=== PATIENT | male | born 1945 | race Caucasian/White ===

== ENCOUNTER → 2016-09-10 | Outpatient (REF) | payer MEDICARE, OTHER ==
[2016-09-14 00:06] LABS: ACETYLCHOLINE RCPTOR BINDING A 5.63 nmol/L (0.00-0.24); STRIATIONAL ANTIBODIES Negative (Neg:<1:40)
== END ==
LOC: M LABNEURO 11:34
PROVIDERS: ATTEND Psychiatry & Neurology Neurology
DX: H53.2 Diplopia (principal)

== ENCOUNTER → 2016-10-08 | Outpatient (CLI) | payer MEDICARE, BC, OTHER | LOC: M RAD 16:03 | PROVIDERS: ATTEND Psychiatry & Neurology Neurology | DX: G70.00 Myasthenia gravis without (acute) exacerbation (principal); D15.0 Benign neoplasm of thymus ==

== ENCOUNTER → 2016-10-09 | Outpatient (CLI) | payer MEDICARE, BC, OTHER ==
[~2016-10-09] MED LIST: ISOVUE-370 76% 100ML VIAL (Q9967) As Ordered ONE
--- NOTE | 2016-10-09 18:03 | REP ---
CT CHEST WITH CONTRAST: HISTORY: Thymus neoplasm. COMPARISON: None. CONTRAST: 100 mL [id number]. There is no mediastinal or hilar adenopathy. There are no pleural or pericardial effusions. The images upper abdomen is within normal limits. The images osseous structures are within normal limits for the patient's age. Evaluation of the lung anderson shows no abnormal nodules, masses or opacities. IMPRESSION: CT findings are within normal limits. Signed by Eduardo Armenta DO 10/10/2016 10:14 A
== END ==
LOC: M RAD 13:34
PROVIDERS: ATTEND Psychiatry & Neurology Neurology
DX: G70.00 Myasthenia gravis without (acute) exacerbation (principal); D15.0 Benign neoplasm of thymus
CPT/HCPCS: 71260; Q9967

== ENCOUNTER → 2017-04-28 | Outpatient (REF) | payer MEDICARE, OTHER ==
[2017-04-28 15:07] LABS: PROSTATIC SPECIFIC AG MONITOR 1.78 NG/ML (< 4.0)
[2017-04-28 15:14] LABS: TESTOSTERONE 563 NG/DL (241-827)
== END ==
LOC: M LAB REF 13:07
DX: R33.9 Retention of urine, unspecified (principal); N40.0 Benign prostatic hyperplasia without lower urinary tract symptoms
CPT/HCPCS: 84403

== ENCOUNTER → 2018-02-02 | Outpatient (REF) | payer MEDICARE, OTHER ==
[2018-02-02 20:09] LABS: BACTERIA, URINE AUTO NEGATIVE (NEGATIVE); MUCUS, URINE SMALL (NEGATIVE); RBC, URINE AUTO 3 /HPF (0-3); SQUAMOUS EPITHELIAL CELL UR AU 0 /HPF (0-6); WBC, URINE AUTO 0 /HPF (0-3)
== END ==
LOC: M LAB REF 16:33
DX: R31.9 Hematuria, unspecified (principal)
CPT/HCPCS: 81015

== ENCOUNTER 2019-05-10 10:52 | Day surgery (SDC) | payer MEDICARE, BC, OTHER ==
[~2019-05-10] VITALS: Ht 172.7 cm; Wt 81.6 kg
[~2019-05-10 10:52] MED LIST changes: +ALFU10TA3 PO; +CALC500C16 PO; +CIDA500T2 PO; -ISOVUE-370 76% 100ML VIAL (Q9967) As Ordered ONE; +MAGN400C PO; +MYCO250C PO; +NS 1,000 ML IV SCH; +OLME40TA PO; +PRAV20TA2 PO; +PYRI60TA2 PO; +VITAD1000T PO
[2019-05-10] MEDS ORDERED: LIDOCAINE 2% INJ 100 MG/5 ML SDV (FOR ANES.) As Ordered ONE (11:06)
[2019-05-10] MEDS ORDERED: propofoL 200 MG/20 ML VIAL As Ordered ONE (11:06)
--- NOTE | 2019-05-10 12:38 | ROOR ---
Patient Name: Eric Cr Procedure Date: 05/10/2019 12:14 PM Date of : 1945 Age: 73 Room: [facility] Gender: Male Note Status: Finalized Procedure: Total Colonoscopy to Cecum Indications: Screening for colorectal malignant neoplasm Providers: Zeus Feliz MD Referring MD: Moon PARMAR MD Requesting Provider: Medicines: Monitored Anesthesia Care Complications: No immediate complications. Procedure: Pre-Anesthesia Assessment: - The heart rate, respiratory rate, oxygen saturations, blood pressure, adequacy of pulmonary ventilation, and response to care were monitored throughout the procedure. The Colonoscope was introduced through the anus and advanced to the cecum, identified by appendiceal orifice and ileocecal valve. The colonoscopy was performed without difficulty. The patient tolerated the procedure well. The quality of the bowel preparation was excellent. Findings: The perianal and digital rectal examinations were normal. Non-bleeding internal hemorrhoids were found during retroflexion. The hemorrhoids were small and Grade I (internal hemorrhoids that do not prolapse). A few small-mouthed diverticula were found in the recto-sigmoid colon, sigmoid colon and descending colon. The exam was otherwise without abnormality on direct and retroflexion views. Impression: - Non-bleeding internal hemorrhoids. - Diverticulosis in the recto-sigmoid colon, in the sigmoid colon and in the descending colon. - The examination was otherwise normal on direct and retroflexion views. - No specimens collected. - The exam was otherwise normal to the cecum. Recommendation: - Patient has a contact number available for emergencies. The signs and symptoms of potential delayed complications were discussed with the patient. Return to normal activities tomorrow. Written discharge instructions were provided to the patient. - High fiber diet. - Discharge patient to home. - Continue present medications. - Repeat colonoscopy for symptoms only. - Return to referring physician. - The findings and recommendations were discussed with the patient's family. Zeus Feliz MD Zeus Feliz MD 05/10/2019 12:37:21 PM Electronically signed by Zeus Feliz MD Number of Addenda: 0 Note Initiated On: 05/10/2019 12:14 PM Estimated Blood Loss: Estimated blood loss: none.
[2019-05-10 12:55] VITALS: BP 126/67
== END 2019-05-10 13:02 | disposition home or self-care (01) ==
LOC: M OPP 10:52
PROVIDERS: ATTEND Internal Medicine Gastroenterology
DX: Z12.11 Encounter for screening for malignant neoplasm of colon (principal); K64.0 First degree hemorrhoids; K57.30 Diverticulosis of large intestine without perforation or abscess without bleeding; I10 Essential (primary) hypertension; E78.00 Pure hypercholesterolemia, unspecified; G70.00 Myasthenia gravis without (acute) exacerbation; Z87.891 Personal history of nicotine dependence; Z79.899 Other long term (current) drug therapy

== ENCOUNTER → 2019-07-11 | Outpatient (REF) | payer MEDICARE, BC, OTHER ==
[~2019-07-11] MED LIST changes: -NS 1,000 ML IV SCH
== END ==
LOC: M LAB REF 18:03
PROVIDERS: ATTEND Physician Assistant
DX: R19.7 Diarrhea, unspecified (principal)

== ENCOUNTER → 2020-05-26 | Outpatient (CLI) | payer MEDICARE, BC, OTHER ==
[~2020-05-26] MED LIST changes: +D31000TA2 PO; -VITAD1000T PO
--- NOTE | 2020-05-26 13:21 | REP ---
INDICATION: CALCANEAL FX VS ACHILLES TENDONITIS. COMPARISON: Plain films 10/18/2019. TECHNIQUE: Multiple sequences are obtained in the axial, coronal and sagittal planes. FINDINGS: The Achilles, anterior tibial, posterior tibial, flexor hallucis longus, flexor digitorum longus and peroneal tendons are all intact without significant tenosynovitis. The anterior and posterior talofibular, calcaneofibular and deltoid ligaments appear intact. Plantar tendon appears intact. There is no plantar fasciitis. Sinus tarsi appears unremarkable. No ganglion cyst is seen. There is normal amount of joint fluid. The cartilaginous surfaces are smooth. No osteochondral defect is seen at the tibiotalar joint. Mild curvilinear high signal on T2 weighted images in the mid and posterior calcaneus, is low in signal on T1, and has a in oblique orientation, this likely represents advanced healing of a nondisplaced occult fracture/bone bruise. IMPRESSION: Findings compatible with advanced healing of a nondisplaced occult fracture/bone bruise of the calcaneus. <Electronically signed by Justin Crowder > 05/26/20 [id number]
== END ==
LOC: M PLARAD 09:58
PROVIDERS: ATTEND Podiatrist
DX: M79.672 Pain in left foot (principal)

== ENCOUNTER → 2020-08-04 | Outpatient (REF) | payer MEDICARE, BC, OTHER | LOC: M LAB REF 19:53 | PROVIDERS: ATTEND Nurse Practitioner Family | DX: R11.2 Nausea with vomiting, unspecified (principal); Z79.899 Other long term (current) drug therapy ==

== ENCOUNTER → 2020-08-07 | Outpatient (CLI) | payer MEDICARE, BC, OTHER ==
[2020-08-07 20:01] LABS: BASO % 0.4 % (0.0-1.0); EOS % 0.4 % (0.0-3.0); HEMATOCRIT 48.5 % (42.0-52.0); HEMOGLOBIN 15.8 g/dl (13.5-17.5); LYMPH # 0.5 10^3/uL (1.5-5.0); LYMPH % 8.9 % (24.0-44.0); MEAN CORPUSCULAR HEMOGLOBIN 31.6 pg (27.0-33.0); MEAN CORPUSCULAR HGB CONC 32.6 g/dl (32.0-36.5); MONO # 0.4 10^3/uL (0.0-0.8); MONO % 7.5 % (2.0-8.0); NEUTROPHILS # 4.6 10^3/uL (1.5-8.5); NEUTROPHILS % 82.4 % (36.0-66.0); PLATELET COUNT, AUTOMATED 344 10^3/uL (150-450); WHITE BLOOD COUNT 5.6 10^3/uL (4.0-10.0)
[2020-08-07 20:08] LABS: ALBUMIN 3.4 GM/DL (3.2-5.2); CALCIUM LEVEL 8.6 MG/DL (8.8-10.2); CREATININE FOR GFR 1.41 MG/DL (0.70-1.30); GLOMERULAR FILTRATION RATE 52.2 (>42); TOTAL PROTEIN 6.3 GM/DL (6.4-8.2)
== END ==
LOC: M WUC 15:40
PROVIDERS: ATTEND Physician Assistant
DX: R19.7 Diarrhea, unspecified (principal)

== ENCOUNTER → 2020-08-07 | Outpatient (REF) | payer MEDICARE, BC, OTHER | LOC: M LAB REF 20:09 | PROVIDERS: ATTEND Physician Assistant | DX: R19.7 Diarrhea, unspecified (principal) ==

== ENCOUNTER → 2020-08-10 | Outpatient (CLI) | payer MEDICARE, BC, OTHER | LOC: M LAB 10:58 | PROVIDERS: ATTEND Internal Medicine | DX: R19.7 Diarrhea, unspecified (principal) ==

== ENCOUNTER → 2020-08-11 | Outpatient (REF) | payer MEDICARE, OTHER | LOC: M LAB REF 12:52 | PROVIDERS: ATTEND Internal Medicine | DX: R19.7 Diarrhea, unspecified (principal) ==

== ENCOUNTER → 2020-08-12 | Outpatient (REF) | payer MEDICARE, OTHER | LOC: M LAB REF 16:07 | PROVIDERS: ATTEND Internal Medicine | DX: R19.7 Diarrhea, unspecified (principal) ==

== ENCOUNTER → 2020-08-15 | Outpatient (REF) | payer MEDICARE, OTHER | LOC: M LAB REF 17:12 | PROVIDERS: ATTEND Internal Medicine | DX: R19.7 Diarrhea, unspecified (principal) ==

== ENCOUNTER → 2020-09-06 | Outpatient (CLI) | payer MEDICARE, BC ==
--- NOTE | 2020-09-06 14:50 | DEXAMM ---
INDICATION: M85.80 [facility] DISRD OF BONE DENSITY AND STRUCTURE. COMPARISON: 09/22/2018, 08/29/2005. TECHNIQUE: Bone density was measured using dual-energy x-ray absorptiometry (DEXA). FINDINGS: AP SPINE L1-L4 BMD 1.158 g/cm2 Young Adult T-Score -0.3 Age Matched Z-Score 0.0. LT FEMUR, TOTAL BMD 0.876 g/cm2 Young Adult T-Score -1.0 Age Matched Z-Score -0.7. LT NECK BMD 0.825 g/cm2 Young Adult T-Score -1.5 Age Matched Z-Score -0.5. RT FEMUR, TOTAL BMD 0.833 g/cm2 Young Adult T-Score -1.4 Age Matched Z-Score -0.9. RT NECK BMD 0.794 g/cm2 Young Adult T-Score -1.8 Age Matched Z-Score -0.7. IMPRESSION: There is normal bone density of the spine. There is low bone density of the left hip. There is low bone density of the right hip. The density of the spine has increased 5.2% since the initial exam on 08/29/2005. The density of the spine decreased 5.0% since most recent exam on 09/22/2018. The density of the left hip has decreased 10.2% since initial exam on 08/29/2005. The density of the left hip has decreased 6.4% since most recent exam on 09/22/2018. The density of the right hip has decreased 7.9% since the initial exam on 08/29/2005. The density of the right hip has decreased 6.2% since the most recent exam on 09/22/2018. FOLLOW-UP: Recommendation for the next bone density exam: 2 years. <Electronically signed by Justin Crowder > 09/06/20 [id number]
== END ==
LOC: M WHC 13:54
PROVIDERS: ATTEND Internal Medicine
DX: M85.88 Other specified disorders of bone density and structure, other site (principal)

== ENCOUNTER 2022-06-24 09:27 | Emergency (ER) | payer MEDICARE, BC, OTHER ==
[~2022-06-24] VITALS: Ht 172.7 cm; Wt 87.7 kg
[~2022-06-24 09:27] MED LIST changes: -D31000TA2 PO; +VITA100093 PO
[2022-06-24 10:29] LABS: BASO % 0.3 % (0.0-1.0); EOS % 0.5 % (0.0-3.0); HEMATOCRIT 41.1 % (42.0-52.0); HEMOGLOBIN 13.5 g/dl (13.5-17.5); LYMPH # 0.7 10^3/uL (1.5-5.0); LYMPH % 7.5 % (24.0-44.0); MEAN CORPUSCULAR HEMOGLOBIN 32.2 pg (27.0-33.0); MEAN CORPUSCULAR HGB CONC 32.8 g/dl (32.0-36.5); MEAN CORPUSCULAR VOLUME 98.1 fl (80.0-96.0); MONO # 0.8 10^3/uL (0.0-0.8); MONO % 9.5 % (2.0-8.0); NEUTROPHILS # 7.3 10^3/uL (1.5-8.5); NEUTROPHILS % 81.9 % (36.0-66.0); PLATELET COUNT, AUTOMATED 234 10^3/uL (150-450); RED BLOOD COUNT 4.19 10^6/uL (4.30-6.10); WHITE BLOOD COUNT 8.9 10^3/uL (4.0-10.0)
[2022-06-24 10:33] LABS: INR 1.01; PROTHROMBIN TIME 13.5 SECONDS (12.5-14.5)
[2022-06-24 10:52] LABS: BLOOD UREA NITROGEN 19 MG/DL (9-23); CALCIUM LEVEL 8.9 MG/DL (8.3-10.6); CARBON DIOXIDE LEVEL 25 MMOL/L (20-31); CHLORIDE LEVEL 105 MMOL/L (98-107); CREATININE FOR GFR 1.01 MG/DL (0.70-1.30); GLOMERULAR FILTRATION RATE > 60.0 (>42); GLUCOSE, FASTING 102 MG/DL (74-106); POTASSIUM SERUM 4.2 MMOL/L (3.5-5.1); SODIUM LEVEL 138 MMOL/L (136-145)
[2022-06-24] MEDS ORDERED: CIPR500T39 PO (13:30)
[2022-06-24 13:37] VITALS: BP 187/91
== END 2022-06-24 13:42 | disposition home or self-care (01) ==
LOC: M ED 09:27
DX: N39.0 Urinary tract infection, site not specified (principal); I10 Essential (primary) hypertension; N40.1 Benign prostatic hyperplasia with lower urinary tract symptoms; Z79.82 Long term (current) use of aspirin; G70.00 Myasthenia gravis without (acute) exacerbation; Z79.899 Other long term (current) drug therapy

== ENCOUNTER → 2023-05-21 | Outpatient (REF) | payer MEDICARE, OTHER ==
[~2023-05-21] MED LIST changes: +CIPR500T39 PO
[2023-05-21 12:54] LABS: APPEARANCE, URINE CLEAR (CLEAR); BACTERIA, URINE AUTO NEGATIVE (NEGATIVE); BILIRUBIN, URINE AUTO NEGATIVE (NEGATIVE); BLOOD, URINE BLOOD 1+ (NEGATIVE); COLOR, URINE STRAW (YELLOW); GLUCOSE, URINE (UA) AUTO NEGATIVE (NEGATIVE); KETONE, URINE AUTO NEGATIVE (NEGATIVE); LEUKOCYTE ESTERASE, URINE AUTO NEGATIVE (NEGATIVE); NITRITE, URINE AUTO NEGATIVE (NEGATIVE); PROTEIN, URINE AUTO NEGATIVE (NEGATIVE); RBC, URINE AUTO 0 /HPF (0-3); SPECIFIC GRAVITY URINE AUTO 1.005 (1.002-1.035); SQUAMOUS EPITHELIAL CELL UR AU 0 /HPF (0-6); UROBILINOGEN, URINE AUTO 0.2 mg/dL (0.0-2.0); WBC, URINE AUTO 0 /HPF (0-3)
== END ==
LOC: M LAB REF 12:14
PROVIDERS: ATTEND Internal Medicine
DX: Z01.818 Encounter for other preprocedural examination (principal); Z79.899 Other long term (current) drug therapy

== ENCOUNTER 2024-09-26 19:52 | Emergency (ER) | payer MEDICARE, BC ==
[~2024-09-26] VITALS: Ht 172.7 cm; Wt 98.4 kg
[~2024-09-26 19:52] MED LIST changes: +ALFU10TA23 PO; -ALFU10TA3 PO; -PRAV20TA2 PO; +PRAV20TA78 PO
[2024-09-26 19:56] VITALS: TEMP 99.2
[2024-09-26 20:24] LABS: KETONE, URINE AUTO RFX NEGATIVE (NEGATIVE); LEUKOCYTE ESTERASE UR AUTO RFX 3+ (NEGATIVE); MUCUS, URINE RFX SMALL (NEGATIVE); NITRITE, URINE AUTO RFX NEGATIVE (NEGATIVE); RBC, URINE AUTO RFX 21 /HPF (0-3); SQUAM EPITHELIAL CELL UR AURFX 0 /HPF (0-6); WBC, URINE AUTO RFX TNTC /HPF (0-3)
[2024-09-26] MEDS ORDERED: CIPR500T39 PO (20:49)
[2024-09-26 21:00] VITALS: BP 158/84
[2024-09-26 21:07] VITALS: O2SAT 98
[2024-09-26] MEDS: CIPROFLOXACIN 500 MG TABLET PO ONE (21:07)
== END 2024-09-26 21:14 | disposition home or self-care (01) ==
LOC: M ED 19:52
DX: N39.0 Urinary tract infection, site not specified (principal); I10 Essential (primary) hypertension; F10.10 Alcohol abuse, uncomplicated; Z79.899 Other long term (current) drug therapy